=== PATIENT | male | born 1980 | race Two or more races ===

== ENCOUNTER 2021-01-21 21:11 | Inpatient (IN) | payer OTHER ==
[~2021-01-21] VITALS: Ht 170.2 cm; Wt 83.9 kg
[2021-01-21 21:43] LABS: Basophils # (auto) 0.1 10 ^3/uL (0-0.2); Lymphocytes # (auto) 2.6 10 ^3/uL (0.4-5.4); Nucleated Red Blood Cells % 0.3 %; Red Cell Distribution Width 12.8 % (11.8-14.3)
[2021-01-21 21:45] LABS: Basophils % (auto) 0.6 % (0.0-2.0); Eosinophils # (auto) 0.2 10 ^3/uL (0-0.8); Eosinophils % (auto) 2.7 % (0.0-7.0); Hematocrit 43.6 % (41.0-53.0); Lymphocytes % (auto) 29.6 % (10.0-50.0); Mean Corpuscular Hemoglobin 34.2 pg (28.0-32.0); Mean Corpuscular Hgb Conc. 36.7 g/dL (32.0-36.0); Mean Corpuscular Volume 93.1 fL (80.0-100.0); Monocytes # (auto) 1.1 10 ^3/uL (0-1.3); Monocytes % (auto) 12.1 % (0.0-12.0); Neutrophils # (auto) 4.9 10 ^3/uL (1.6-8.6); Red Blood Cells 4.68 10^6/uL (4.5-5.90); White Blood Cell 8.9 10^3/uL (4.4-10.8)
[2021-01-21 22:00] LABS: Albumin 3.8 g/dL (3.4-5.0); Anion Gap 7 (5-15); Calcium 7.6 mg/dL (8.5-10.1); Carbon Dioxide 24 mmol/L (21-32); Chloride 110 mmol/L (98-107); Glucose 137 mg/dL (74-106); Magnesium 2.2 mg/dL (1.6-2.6); Potassium 3.9 mmol/L (3.5-5.1); Sodium 141 mmol/L (136-145)
[2021-01-21 22:06] LABS: Alkaline Phosphatase 93 U/L (45-117); Bilirubin, Total 0.7 mg/dL (0.2-1.0); GFR African American 139 mL/min; GFR Non-African American 115 mL/min
[2021-01-21 22:15] LABS: INR 0.96 (0.9-1.15)
[2021-01-21 23:27] LABS: BUN/Creatinine Ratio 11.3; Blood Urea Nitrogen 9 mg/dL (7-18); Total Protein 6.9 g/dL (6.4-8.2)
[2021-01-21 23:28] LABS: Alanine Aminotransferase 51 U/L (16-61); Aspartate Aminotransferase 39 U/L (15-37)
[2021-01-22] MEDS ORDERED: ONDANSETRON HCL 4 MG/2 ML VIAL IV PRN (02:30)
[2021-01-22] MEDS ORDERED: HYDROcodone-ACET 10/325MG TAB PO PRN (02:30)
[2021-01-22 08:35] VITALS: BP 132/72
[2021-01-22 09:13] VITALS: BP 132/72
[2021-01-22] MEDS: LISINOPRIL 20 MG TAB PO SCH (10:00)
[2021-01-22] MEDS: ASPirin 81 mg TAB PO SCH (10:40)
[2021-01-22] MEDS: ATORVASTATIN 20 MG TAB PO SCH (10:40)
[2021-01-22] MEDS: METOPROLOL TARTRATE 25 MG TAB PO SCH (10:41)
[2021-01-22] MEDS: ENOXAPARIN SOD 40 MG/0.4 ML SYRINGE SC SCH (10:42)
[2021-01-22 12:26] VITALS: BP 110/72
[2021-01-22] MEDS ORDERED: FURO1TAB31 PO ×2 (12:43→12:48)
[2021-01-22] MEDS ORDERED: LISI20TA28 PO (12:43)
[2021-01-22] MEDS ORDERED: POTA1TAB61 PO (12:48)
[2021-01-22] MEDS ORDERED: ATO40T PO (12:48)
[2021-01-22] MEDS ORDERED: ASPI-543 PO (12:48)
[2021-01-22 16:20] VITALS: BP 104/76
[2021-01-22 21:57] VITALS: BP 118/64
[2021-01-23 05:05] VITALS: BP 94/57
[2021-01-23] MEDS ORDERED: ADENOSINE 71 MG in GIVE UN-DILUTED 0 ML IV STA (08:25)
[2021-01-23 09:00] VITALS: BP 115/61
[2021-01-23] MEDS: LISINOPRIL 20 MG TAB PO SCH (11:34)
[2021-01-23] MEDS: ASPirin 81 mg TAB PO SCH (11:34)
[2021-01-23] MEDS: ENOXAPARIN SOD 40 MG/0.4 ML SYRINGE SC SCH (11:34)
[2021-01-23] MEDS: METOPROLOL TARTRATE 25 MG TAB PO SCH (11:35)
[2021-01-23] MEDS: ATORVASTATIN 20 MG TAB PO SCH (11:35)
[2021-01-23 13:00] VITALS: BP 119/71
[2021-01-23 17:00] VITALS: BP 108/66
[2021-01-23 20:00] VITALS: BP 133/48
[2021-01-24 05:00] VITALS: BP 94/69
[2021-01-24 09:00] VITALS: BP 103/70
[2021-01-24] MEDS: ASPirin 81 mg TAB PO SCH (10:48)
[2021-01-24] MEDS: ENOXAPARIN SOD 40 MG/0.4 ML SYRINGE SC SCH (10:48)
[2021-01-24] MEDS: ATORVASTATIN 20 MG TAB PO SCH (10:49)
[2021-01-24] MEDS: METOPROLOL TARTRATE 25 MG TAB PO SCH (10:49)
[2021-01-24] MEDS: LISINOPRIL 20 MG TAB PO SCH (10:49)
[2021-01-24 13:00] VITALS: BP 118/72
[2021-01-24 17:00] VITALS: BP 121/73
[2021-01-24 22:00] VITALS: BP 118/66
[2021-01-25 05:00] VITALS: BP 93/51
[2021-01-25 09:00] VITALS: BP 84/40
[2021-01-25] MEDS: ATORVASTATIN 20 MG TAB PO SCH (09:52)
[2021-01-25] MEDS: ASPirin 81 mg TAB PO SCH (09:52)
[2021-01-25] MEDS: LISINOPRIL 20 MG TAB PO SCH (09:53)
[2021-01-25] MEDS: METOPROLOL TARTRATE 25 MG TAB PO SCH (09:53)
[2021-01-25] MEDS: ENOXAPARIN SOD 40 MG/0.4 ML SYRINGE SC SCH (09:54)
[2021-01-25 10:35] VITALS: BP 129/76
[2021-01-25 12:55] VITALS: BP 114/56
[2021-01-25 16:52] VITALS: BP 115/74
[2021-01-25 22:00] VITALS: BP 130/85
[2021-01-26 05:00] VITALS: BP 98/62
[2021-01-26 09:00] VITALS: BP 100/58
[2021-01-26] MEDS: ASPirin 81 mg TAB PO SCH (09:27)
[2021-01-26] MEDS: LISINOPRIL 20 MG TAB PO SCH (09:28)
[2021-01-26] MEDS: ATORVASTATIN 20 MG TAB PO SCH (09:28)
[2021-01-26] MEDS: METOPROLOL TARTRATE 25 MG TAB PO SCH (09:28)
[2021-01-26] MEDS: ENOXAPARIN SOD 40 MG/0.4 ML SYRINGE SC SCH (09:29)
[2021-01-26 13:00] VITALS: BP 66/41
[2021-01-26 17:00] VITALS: BP 105/72
[2021-01-26 22:00] VITALS: BP 115/63
[2021-01-27 05:00] VITALS: BP 110/60
[2021-01-27] MEDS: ASPirin 81 mg TAB PO SCH (09:21)
[2021-01-27] MEDS: ATORVASTATIN 20 MG TAB PO SCH (09:21)
[2021-01-27] MEDS: METOPROLOL TARTRATE 25 MG TAB PO SCH (09:59)
[2021-01-27] MEDS: ENOXAPARIN SOD 40 MG/0.4 ML SYRINGE SC SCH (09:59)
[2021-01-27 13:00] VITALS: BP 104/55
[2021-01-27 16:47] VITALS: BP 110/72
[2021-01-27 20:54] VITALS: BP 112/71
[2021-01-27 22:08] VITALS: BP 112/71
== END 2021-01-27 22:52 | DRG 313 ==
LOC: EDBD 21:11 → ER 21:15 → EEVIPCON 21:15 → TELE 01-22 02:23 → TELE-WESTW 01-22 08:50
PROVIDERS: ADMIT Internal Medicine; ATTEND Internal Medicine
DX: R07.9 Chest pain, unspecified (principal); E78.5 Hyperlipidemia, unspecified; E83.51 Hypocalcemia; J45.909 Unspecified asthma, uncomplicated; N18.9 Chronic kidney disease, unspecified; I12.9 Hypertensive chronic kidney disease with stage 1 through stage 4 chronic kidney disease, or unspecified chronic kidney disease; Z20.822 Contact with and (suspected) exposure to COVID-19; Z88.0 Allergy status to penicillin; Z88.8 Allergy status to other drugs, medicaments and biological substances; Z82.49 Family history of ischemic heart disease and other diseases of the circulatory system; Z87.891 Personal history of nicotine dependence; I25.2 Old myocardial infarction
CPT/HCPCS: 36415; 71045; 78452; 80053; 83735; 83880; 84484; 85025; 85610; 87426; 93005; 93017; 93306; G0378; J0153